=== PATIENT | male | born 1995 | race Caucasian/White ===

== ENCOUNTER 2016-07-30 01:08 | Emergency (ER) | payer MEDICAID ==
[~2016-07-30] VITALS: Ht 175.3 cm; Wt 86.4 kg
[2016-07-30 01:12] VITALS: TEMP 99
[2016-07-30 02:04] LABS: BASO # 0.1 (0.0-0.2); BASO % 0.3 % (0.0-2.0); EOS # 0.2 (0.0-0.7); EOS % 1.2 % (0-4.0); GRAN # 14.1 (1.4-6.5); GRAN % 84.1 % (42.2-75.2); HEMATOCRIT 47.2 % (36.0-47.0); HEMOGLOBIN 16.8 g/dl (12.5-16.1); LYMPH # 1.5 (1.2-3.4); LYMPH % 9.2 % (20.0-51.0); MEAN CELL VOLUME 83 fl (80.0-95.0); MEAN CORPUSCULAR HEMOGLOBIN 30 pg (26.0-32.0); MEAN CORPUSCULAR HGB CONC 36 g/dl (33.0-37.0); MEAN PLATELET VOLUME 9.6 fl (7.4-10.4); MONO # 0.8 (0.1-0.6); MONO % 4.8 % (1.7-9.3); PLATELET COUNT 337 K/mm3 (130-400); RED BLOOD COUNT 5.67 M/mm3 (4.20-5.60); REDCELL DISTRIBUTION WIDTH-CV 12.6 % (11.5-14.5); WHITE BLOOD COUNT 16.8 K/mm3 (4.8-10.8)
[2016-07-30 02:13] LABS: ACETAMINOPHEN < 10 ug/mL (10-30); ALANINE AMINOTRANSFERASE 59 U/L (21-72); ALKALINE PHOSPHATASE 90 U/L (50-136); ANION GAP 14 mmol/L (7-16); BILIRUBIN,TOTAL 1.4 mg/dL (0.0-1.0); BLOOD UREA NITROGEN 15 mg/dL (9-20); CALCIUM 9.8 mg/dL (8.4-10.2); CARBON DIOXIDE 25 mmol/L (22-30); CHLORIDE 102 mmol/L (98-107); GLUCOSE 105 mg/dL (74-106); MAGNESIUM 1.7 mg/dL (1.6-2.3); POTASSIUM 3.7 mmol/L (3.4-5.0); SALICYLATE < 1.0 mg/dL; SODIUM 141 mmol/L (137-145); TOTAL PROTEIN 8.5 gm/dL (6.4-8.2)
[2016-07-30 02:37] LABS: PH 6 (5-8); SQUAMOUS EPITHELIAL None Seen /hpf; URINE APPEARANCE Clear; URINE BACTERIA None Seen /hpf; URINE BILIRUBIN Negative (NEGATIVE); URINE BLOOD Negative (NEGATIVE); URINE COLOR Yellow; URINE GLUCOSE Negative (NEGATIVE); URINE KETONE Negative (NEGATIVE); URINE RBC 0-2 /hpf; URINE UROBILINOGEN Negative (NEGATIVE); URINE WBC 0-2 /hpf
[2016-07-30 02:43] LABS: AMPHETAMINE URINE POSITIVE; BARBITURATES URINE NEGATIVE; BENZODIAZEPINES URINE NEGATIVE; BUPRENORPHINE URINE NEGATIVE; METHADONE URINE NEGATIVE; OPIATES URINE NEGATIVE; OXYCODONE URINE NEGATIVE; PHENCYCLIDINE URINE NEGATIVE; PROPOXYPHENE URINE NEGATIVE; THC CANNABINOIDS URINE NEGATIVE
[2016-07-30 04:42] VITALS: BP 156/92; PULSE 78
== END 2016-07-30 04:57 | disposition home or self-care (01) ==
LOC: COL.ER 01:08
PROVIDERS: Emergency Medicine
DX: T43.622A Poisoning by amphetamines, intentional self-harm, initial encounter (principal); F41.9 Anxiety disorder, unspecified; F32.9 Major depressive disorder, single episode, unspecified; F90.9 Attention-deficit hyperactivity disorder, unspecified type
CPT/HCPCS: J7030

== ENCOUNTER 2019-02-25 18:38 | Emergency (ER) | payer MEDICAID ==
[~2019-02-25] VITALS: Ht 167.6 cm; Wt 86.8 kg
[2019-02-25 18:46] VITALS: BP 122/79; TEMP 97.9
[2019-02-25] MEDS ORDERED: CEPHALEXIN500 M1 PO (20:07)
[2019-02-25 20:24] VITALS: PULSE 92
== END 2019-02-25 20:24 | disposition home or self-care (01) ==
LOC: COL.ER 18:38
DX: S91.312A Laceration without foreign body, left foot, initial encounter (principal); W26.8XXA Contact with other sharp object(s), not elsewhere classified, initial encounter; Y92.009 Unspecified place in unspecified non-institutional (private) residence as the place of occurrence of the external cause

== ENCOUNTER 2021-08-16 19:45 | Emergency (ER) | payer MEDICAID ==
[~2021-08-16] VITALS: Ht 170.2 cm; Wt 84.1 kg
[~2021-08-16 19:45] MED LIST: CEPHALEXIN500 M1 PO
[2021-08-16 21:00] VITALS: BP 99/72; PULSE 69; TEMP 98.3
== END 2021-08-16 21:00 | disposition home or self-care (01) ==
LOC: COL.ER 19:45
DX: S61.411A Laceration without foreign body of right hand, initial encounter (principal); Z28.310 Unvaccinated for COVID-19; W26.0XXA Contact with knife, initial encounter